=== PATIENT | male | born 1965 | race African-American/Black ===

== ENCOUNTER 2016-11-09 15:16 | Emergency (ER) | payer MEDICAID ==
[~2016-11-09] VITALS: Ht 182.9 cm; Wt 87.5 kg
[2016-11-09 15:37] VITALS: BP 145/87
[2016-11-09] MEDS ORDERED: IBUPROFEN 800 MG TAB PO ONE (18:15)
[2016-11-09] MEDS ORDERED: cefTRIAXone SOD 1,000 MG VL IM ONE (18:15)
== END 2016-11-09 18:42 | disposition home or self-care (01) ==
LOC: ER 15:19
DX: J20.9 Acute bronchitis, unspecified (principal); J03.90 Acute tonsillitis, unspecified; F12.10 Cannabis abuse, uncomplicated; F15.10 Other stimulant abuse, uncomplicated
CPT/HCPCS: 96372; 99283; J0696

== ENCOUNTER 2016-12-26 09:48 | Emergency (ER) | payer MEDICAID ==
[~2016-12-26] VITALS: Ht 182.9 cm; Wt 86.2 kg
[2016-12-26 10:10] VITALS: BP 123/85
== END 2016-12-26 10:36 | disposition home or self-care (01) ==
LOC: ER 09:48
DX: J02.9 Acute pharyngitis, unspecified (principal); F17.210 Nicotine dependence, cigarettes, uncomplicated; F12.10 Cannabis abuse, uncomplicated

== ENCOUNTER 2017-07-14 08:08 | Emergency (ER) | payer MEDICAID ==
[~2017-07-14] VITALS: Ht 182.9 cm; Wt 86.2 kg
[2017-07-14 08:48] LABS: Basophils # (auto) 0.1 uL; Eosinophils # (auto) 0.1 uL; Eosinophils % (auto) 1.6 % (0.0-7.0); Hematocrit 39.9 % (41.0-53.0); Hemoglobin 13.4 g/dL (13.5-17.5); Lymphocytes # (auto) 1.3 uL; Mean Corpuscular Hemoglobin 30.4 pg (28.0-32.0); Mean Corpuscular Hgb Conc. 33.6 g/dL (32.0-36.0); Mean Corpuscular Volume 90.6 fL (80.0-100.0); Mean Platelet Volume 7.9 fL (7.4-10.4); Monocytes # (auto) 0.9 uL; Monocytes % (auto) 12.7 % (0.0-12.0); Neutrophils # (auto) 4.5 uL; Neutrophils % (auto) 65.7 % (37.0-80.0); Platelet Count (auto) 307 10^3/uL (140-450); Red Cell Distribution Width 14.2 % (11.6-16.0); White Blood Cell 6.8 10^3/uL (4.4-10.8)
[2017-07-14 09:11] LABS: Alkaline Phosphatase 111 U/L (45-117); Anion Gap 6 (5-15); Aspartate Aminotransferase 25 U/L (15-37); BUN/Creatinine Ratio 12.7; Bilirubin, Total 0.3 mg/dL (0.2-1.0); Blood Urea Nitrogen 14 mg/dL (7-18); Calcium 8.2 mg/dL (8.5-10.1); Carbon Dioxide 25 mmol/L (21-32); Chloride 107 mmol/L (98-107); GFR African American 91 mL/min; GFR Non-African American 75 mL/min; Glucose 122 mg/dL (74-106); Magnesium 2.3 mg/dL (1.6-2.6); Sodium 138 mmol/L (136-145); Total Protein 6.5 g/dL (6.4-8.2)
[2017-07-14 12:06] VITALS: BP 133/80
== END 2017-07-14 12:13 | disposition home or self-care (01) ==
LOC: ER 08:08
DX: G43.009 Migraine without aura, not intractable, without status migrainosus (principal); I10 Essential (primary) hypertension; F17.210 Nicotine dependence, cigarettes, uncomplicated
CPT/HCPCS: 36415; 70450; 80053; 82962; 83735; 84484; 85025; 93005

== ENCOUNTER 2017-09-18 13:40 | Emergency (ER) | payer MEDICAID ==
[~2017-09-18] VITALS: Ht 182.9 cm; Wt 86.2 kg
[2017-09-18 14:30] VITALS: BP 123/78
== END 2017-09-18 14:55 | disposition home or self-care (01) ==
LOC: ER 13:40
DX: J01.10 Acute frontal sinusitis, unspecified (principal); I10 Essential (primary) hypertension; F17.210 Nicotine dependence, cigarettes, uncomplicated

== ENCOUNTER 2018-10-06 07:34 | Inpatient (IN) | payer MEDICAID ==
[~2018-10-06] VITALS: Ht 182.9 cm; Wt 81.8 kg
[2018-10-06] MEDS ORDERED: LIDOCAINE 2% JELLY 11ml (GLYDO) ONE (08:18)
[2018-10-06] MEDS ORDERED: LIDOCAINE 2% JELLY 11ml (GLYDO) UR ONE (08:30)
[2018-10-06] MEDS ORDERED: SODIUM CHLORIDE 0.9% 1,000 ML IVB ONE (08:43)
[2018-10-06] MEDS ORDERED: cefTRIAXone 1GM/50ML D5W 50 ML IV ONE (08:45)
[2018-10-06] MEDS ORDERED: KETOROLAC TROMETH 30 MG/ML 1ML VIAL IV ONE (08:45)
[2018-10-06] MEDS ORDERED: PROMETHAZINE HCL 25 MG/ML 1ML IV PRN (08:45)
[2018-10-06 08:53] LABS: Urine Bacteria MOD /hpf (None Seen); Urine Blood 2+ /uL (Negative); Urine Mucus MANY (None Seen); Urine Specific Gravity 1.024 (1.001-1.035); Urine WBC 215 /hpf (0 - 3)
[2018-10-06 09:01] LABS: Hematocrit 40.9 % (41.0-53.0); Hemoglobin 13.4 g/dL (13.5-17.5); Mean Corpuscular Hemoglobin 29.8 pg (28.0-32.0); Mean Corpuscular Hgb Conc. 32.8 g/dL (32.0-36.0); Mean Corpuscular Volume 90.9 fL (80.0-100.0); Platelet Count (auto) 351 10^3/uL (140-450); Red Cell Distribution Width 13.7 % (11.8-14.3); White Blood Cell 26.2 10^3/uL (4.4-10.8)
[2018-10-06 09:07] LABS: Basophils % (manual) 0 (0.0-2.0); Blast Cells 0; Eosinophils % (manual) 0 (0-7); Metamyelocytes % 0; Myelocytes % 0; Promyelocytes % 0; Reactive Lymphocytes 0
[2018-10-06 09:10] LABS: Albumin 3.1 g/dL (3.4-5.0); Calcium 8.4 mg/dL (8.5-10.1); Potassium 4.2 mmol/L (3.5-5.1)
[2018-10-06 09:14] LABS: BUN/Creatinine Ratio 12.4; Bilirubin, Total 0.9 mg/dL (0.2-1.0); Total Protein 6.9 g/dL (6.4-8.2)
[2018-10-06 09:36] LABS: Magnesium 1.9 mg/dL (1.6-2.6)
[2018-10-06] MEDS ORDERED: IOHEXOL 300 MG/ML 100ML BOTTLE IJ ONE (10:06)
[2018-10-06 10:59] LABS: Band Neutrophils % (manual) 2; Lymphocytes % (manual) 5 (10.0-50.0); Monocytes % (manual) 9 (0-12)
[2018-10-06] MEDS ORDERED: DOCUSATE SOD 100 MG CAP PO PRN (14:15)
[2018-10-06] MEDS ORDERED: MORPHINE SULFATE 10 MG/ML INJ 1ML SDV IV PRN ×2 (14:15)
[2018-10-06] MEDS ORDERED: ONDANSETRON HCL 4 MG/2 ML VIAL IV PRN (14:15)
[2018-10-06] MEDS ORDERED: VANCOMYCIN PER PHARMACY 0 MG IV SCH (14:15)
[2018-10-06] MEDS ORDERED: NITROGLYCERIN 0.4 MG SL TAB SL PRN (14:15)
[2018-10-06] MEDS ORDERED: HYDROcodone-ACET 5/325MG TAB PO PRN (14:15)
[2018-10-06] MEDS ORDERED: TEMAZEPAM 15 MG CAP PO PRN (14:15)
[2018-10-06] MEDS ORDERED: ACETAMINOPHEN 325 MG TAB PO PRN (14:15)
[2018-10-06] MEDS: SODIUM CHLORIDE 0.9% 1,000 ML IV SCH (14:49)
[2018-10-06] MEDS: VANCOMYCIN 1GM/250ML 250 ML IV SCH (15:00)
[2018-10-06] MEDS: Ensure Enlive Strawberry 8oz Bottle PO SCH (18:00)
[2018-10-06 18:28] VITALS: BP 130/78
[2018-10-06] MEDS ORDERED: TAMS0.4C36 PO (18:48)
[2018-10-06] MEDS ORDERED: cloNIDine HCL 0.1 MG TAB PO PRN (20:15)
[2018-10-06] MEDS ORDERED: IBUPROFEN 400 MG TAB PO PRN (20:15)
[2018-10-06 21:52] VITALS: BP 104/54
[2018-10-07] MEDS: VANCOMYCIN 1GM/250ML 250 ML IV SCH ×2 (02:41→14:42)
[2018-10-07 05:00] VITALS: BP 117/72
[2018-10-07] MEDS: SODIUM CHLORIDE 0.9% 1,000 ML IV SCH (07:56)
[2018-10-07] MEDS: Ensure Enlive Strawberry 8oz Bottle PO SCH ×2 (07:58→12:14)
[2018-10-07 08:36] VITALS: BP 105/60
[2018-10-07] MEDS ORDERED: cefTRIAXone 1GM/50ML D5W 50 ML IV SCH (09:00)
[2018-10-07] MEDS ORDERED: FINASTERIDE 5 MG TAB PO SCH (10:00)
[2018-10-07] MEDS ORDERED: MULTIPLE VITAMIN TAB PO SCH (10:00)
[2018-10-07] MEDS ORDERED: LISINOPRIL 10 MG TAB PO SCH (10:00)
[2018-10-07] MEDS ORDERED: SODIUM CHLORIDE 0.9% 1,000 ML IV SCH (16:00)
[2018-10-07] MEDS ORDERED: TAMSULOSIN HYDROCHLORIDE 0.4 MG CAP PO SCH (18:00)
== END 2018-10-07 17:00 | disposition left against medical advice (07) | DRG 720 ==
LOC: ER 07:34 → TELE 11:07 → TELE-WESTW 18:02
PROVIDERS: ADMIT Internal Medicine; ATTEND Internal Medicine
DX: A41.9 Sepsis, unspecified organism (principal); E44.0 Moderate protein-calorie malnutrition; E87.1 Hypo-osmolality and hyponatremia; E83.51 Hypocalcemia; M41.86 Other forms of scoliosis, lumbar region; R31.9 Hematuria, unspecified; N45.1 Epididymitis; G43.909 Migraine, unspecified, not intractable, without status migrainosus; N12 Tubulo-interstitial nephritis, not specified as acute or chronic; N43.3 Hydrocele, unspecified; N40.0 Benign prostatic hyperplasia without lower urinary tract symptoms; N41.9 Inflammatory disease of prostate, unspecified; N13.6 Pyonephrosis; N18.2 Chronic kidney disease, stage 2 (mild); N39.0 Urinary tract infection, site not specified; D63.8 Anemia in other chronic diseases classified elsewhere; F17.210 Nicotine dependence, cigarettes, uncomplicated; I12.9 Hypertensive chronic kidney disease with stage 1 through stage 4 chronic kidney disease, or unspecified chronic kidney disease; Z82.49 Family history of ischemic heart disease and other diseases of the circulatory system; Z79.899 Other long term (current) drug therapy; Z83.3 Family history of diabetes mellitus; Z90.49 Acquired absence of other specified parts of digestive tract; Z68.24 Body mass index [BMI] 24.0-24.9, adult
CPT/HCPCS: 36415; 74177; 76775; 76870; 80053; 81001; 83605; 83690; 83735; 84154; 85007; 85027; 87040; 87086; 87088; 87186; 94761; 96361; 96365; 96375; G0378; J0696; J1885